=== PATIENT | male | born 1955 | race African-American/Black ===

== ENCOUNTER → 2016-10-04 | Outpatient (CLI) | payer SELFPAY ==
[2016-10-04 12:17] LABS: ALANINE AMINOTRANSFERASE 62 U/L (21-72); ALBUMIN 3.9 g/dL (3.5-5.0); ALKALINE PHOSPHATASE 86 U/L (38-126); ANION GAP 11 (5-19); ASPARTATE AMINO TRANSFERASE 56 U/L (17-59); BILIRUBIN,DIRECT 0.3 mg/dL (0.0-0.4); BILIRUBIN,TOTAL 0.4 mg/dL (0.2-1.3); BLOOD UREA NITROGEN 15 mg/dL (7-20); CALCIUM 9.4 mg/dL (8.4-10.2); CARBON DIOXIDE 25 mmol/L (22-30); CHLORIDE 105 mmol/L (98-107); CREATININE RESULT 0.83 mg/dL (0.52-1.25); GLUCOSE 156 mg/dL (75-110); POTASSIUM 4.7 mmol/L (3.6-5.0); SODIUM 140.6 mmol/L (137-145); TOTAL PROTEIN 8.5 g/dL (6.3-8.2); URIC ACID 4.7 mg/dL (3.5-8.5)
--- NOTE | 2016-10-04 14:53 | RADIOLOGY REPORT (SQ) ---
EXAM DESCRIPTION: ABDOMEN 2 VIEWS COMPLETED DATE/TIME: 10/04/2016 12:05 pm REASON FOR STUDY: CALCULUS OF KIDNEY N20.0 CALCULUS OF KIDNEY Z87.442 PERSONAL HISTORY OF URINARY CALCULI COMPARISON: Abdominal CT scan dated April 2011 NUMBER OF VIEWS: Two views. TECHNIQUE: Supine and erect/decubitus radiographic images of the abdomen acquired. LIMITATIONS: None. FINDINGS: FREE AIR: None. No abnormal gas collections. LUNG BASES: Clear. BOWEL GAS PATTERN: Nonobstructive pattern. No dilated loops or air fluid levels. CALCIFICATIONS: Ovoid calcific density is identified in the right pelvis consistent with a bladder ca lculus which was identified on the previous CT scan. SOFT TISSUES: No gross mass or suggestion of organomegaly. HARDWARE: None in the abdomen. BONES: No acute fracture. No worrisome bone lesions. OTHER: No other significant finding. IMPRESSION: NO RADIOGRAPHIC EVIDENCE FOR ACUTE ABDOMINAL DISEASE. Pelvic calcification consistent w ith a bladder calculus which was present on a previous abdominal CT scan. TECHNICAL DOCUMENTATION: JOB ID: [id number] [employer]- All Rights Reserved
[2016-10-05 09:45] LABS: PROSTATE SPECIFIC ANTIGEN 11.2 ng/mL (0.0-4.0); PSA FREE 0.78 ng/mL
== END ==
LOC: OD 10:35
PROVIDERS: ATTEND Urology
DX: N20.0 Calculus of kidney (principal); Z87.442 Personal history of urinary calculi; R33.9 Retention of urine, unspecified
CPT/HCPCS: 36415; 74020; 80053; 84154; 84550

== ENCOUNTER → 2018-06-09 | Outpatient (CLI) | payer OTHER ==
--- NOTE | 2018-06-09 16:24 | RADIOLOGY REPORT (SQ) ---
EXAM DESCRIPTION: CT ABD/PELVIS COMBO COMPLETED DATE/TIME: 06/09/2018 3:33 pm REASON FOR STUDY: R35.0 FREQUENCY OF MICTURITION R35.0 FREQUENCY OF MICTURITION COMPARISON: 04/29/2011 KUB dated 10/04/2016 TECHNIQUE: CT scan of the abdomen and pelvis performed with and without intravenous contrast, and wi thout oral contrast. Contrasted imaging performed helical scanning technique and dynamic intravenous contrast injection. Images reviewed with lung, soft tissue, and bone windows. Reconstructed coronal a nd sagittal MPR images reviewed. Delayed images for evaluation of the urinary system also acquired. A ll images stored on PACS. All CT scanners at this facility use dose modulation, iterative reconstruction, and/or weight based d osing when appropriate to reduce radiation dose to as low as reasonably achievable (ALARA). [facility]: Dose Right [facility]: CareDose [facility]: Dose Right [facility]: Teradose 4D [facility]: ChromoTek CONTRAST TYPE AND DOSE: contrast/concentration: Isovue 350.00 mg/ml; Total Contrast Delivered: 73.0 ml; Total Saline Delivered: 55.0 ml RENAL FUNCTION: Creatinine 1.1 RADIATION DOSE: CT Rad equipment meets quality standard of care and radiation dose reduction techniq ues were employed. CTDIvol: 8.9 - 8.9 mGy. DLP: 1291 mGy-cm. . LIMITATIONS: None. FINDINGS: NON-CONTRASTED IMAGING: There is a 3.5 cm bladder stone. This is increased in size since prior study. POST-CONTRASTED IMAGING: LOWER CHEST: No significant findings. No nodules or infiltrates. LIVER: Normal size. No masses. No dilated ducts. SPLEEN: Normal size. No focal lesions. PANCREAS: No focal pancreatic lesions. Pancreatic duct is mildly prominent size but unchanged and me asures 2.5 mm in diameter but stands out on CT images. GALLBLADDER: No identified stones by CT criteria. No inflammatory changes to suggest cholecystitis. ADRENAL GLANDS: No significant masses or asymmetry. RIGHT KIDNEY AND URETER: No solid masses. There is a stable right cortical renal cyst. No signific ant calcifications. No hydronephrosis or hydroureter. LEFT KIDNEY AND URETER: No solid masses. No significant calcifications. No hydronephrosis or hydr oureter. AORTA AND VESSELS: No aneurysm. No dissection. Renal arteries, SMA, celiac without stenosis. RETROPERITONEUM: No retroperitoneal adenopathy, hemorrhage or masses. BOWEL AND PERITONEAL CAVITY: There is large amount of stool throughout the colon. No inflammatory ch anges. Study is limited by lack of intra and retroperitoneal fat. APPENDIX: Not visualized. PELVIS: No mass. No free fluid. Normal bladder. ABDOMINAL WALL: No masses. No hernias. BONES: No significant or acute findings. OTHER: No other significant finding. IMPRESSION: 3.5 cm bladder stone. No other significant findings in the abdomen or pelvis. The stud y is limited by lack of intra and retroperitoneal fat. TECHNICAL DOCUMENTATION: JOB ID: [id number] Quality ID # [id number]: Final reports with documentation of one or more dose reduction techniques (e.g., Au tomated exposure control, adjustment of the mA and/or kV according to patient size, use of iterative reconstruction technique) 2010 [employer]- All Rights Reserved Reading location - IP/workstation name: [email or web address]
== END ==
LOC: RAD 14:33
PROVIDERS: ATTEND Urology
DX: N21.0 Calculus in bladder (principal); R35.0 Frequency of micturition
CPT/HCPCS: 74178; 82565

== ENCOUNTER 2019-01-18 14:10 | Observation (INO) | payer OTHER ==
--- NOTE | 2019-01-18 14:51 | ER Document Report ---
ED Medical Screen (RME) - General Chief Complaint: Chest Pain Stated Complaint: CHEST PAIN Time Seen by Provider: 01/18/19 14:47 Primary Care Provider: LINDSAY HOUSTON MD [Primary Care Provider] - Follow up as needed Mode of Arrival: Wheelchair Information source: Parent Notes: 63-year-old male presented to ED for complaint of chest pain while at work. He states it feels like a lot of pressure radiating down the left arm to the with some numbness and tingling is in the fingers. He states no shortness of breath but it did get very hot. He is a cancer patient of prostate cancer he is getting radiation treatments. His last radiation treatment was this morning. He states he has 4 more weeks of treatments to receive. He also has hepatitis C. Dates he is almost finished with the treatment for the hepatitis C. Denies any nausea or vomiting. He states he smokes to 3 cigarettes a day he denies use of alcohol or drugs. I have greeted and performed a rapid initial assessment of this patient. A comprehensive ED assessment and evaluation of the patient, analysis of test results and completion of medical decision making process will be conducted by an additional ED providers. TRAVEL OUTSIDE OF THE [place] IN LAST 30 DAYS: No - Related Data Allergies/Adverse Reactions: No Known Allergies Allergy (Verified 01/18/19 14:40) Past Medical History - Immunizations Hx Diphtheria, Pertussis, Tetanus Vaccination: Yes Physical Exam - Vital signs Vitals: Temp Pulse Resp BP Pulse Ox 99.4 F 83 16 116/73 97 01/18/19 14:19 01/18/19 14:19 01/18/19 14:19 01/18/19 14:19 01/18/19 14:19 Course - Vital Signs Vital signs: Temp Pulse Resp BP Pulse Ox 99.4 F 83 16 116/73 97 01/18/19 14:19 01/18/19 14:19 01/18/19 14:19 01/18/19 14:19 01/18/19 14:19 Doctor's Discharge - Discharge Referrals: LINDSAY HOUSTON MD [Primary Care Provider] - Follow up as needed
[2019-01-18 16:20] LABS: ABSOLUTE LYMPHOCYTES (AUTO) 0.9 10^3/uL (0.5-4.7); ABSOLUTE MONOCYTES (AUTO) 0.6 10^3/uL (0.1-1.4); ABSOLUTE NEUT (AUTO) 2.5 10^3/uL (1.7-8.2); BASOPHILS % (AUTO) 0.7 % (0-2); EOSINOPHILS % (AUTO) 1.1 % (0-6); HEMOGLOBIN 10.1 g/dL (13.5-17.0); LYMPHOCYTES % (AUTO) 22.1 % (13-45); MEAN CORPUSCULAR HEMOGLOBIN 24.8 pg (27.0-33.4); MEAN CORPUSCULAR HGB CONC 31.5 g/dL (32.0-36.0); MEAN CORPUSCULAR VOLUME 79 fl (80-97); MONOCYTES % (AUTO) 15.4 % (3-13); PLATELET COUNT 147 10^3/uL (150-450); RED BLOOD COUNT 4.06 10^6/uL (4.35-5.55); RED CELL DISTRIBUTION WIDTH 13.8 % (11.5-14.0); SEGMENTED NEUTROPHILS % (AUTO) 60.7 % (42-78); TOTAL CELLS COUNTED % (AUTO) 100 %; WHITE BLOOD COUNT 4.1 10^3/uL (4.0-10.5)
[2019-01-18 16:23] LABS: APPEARANCE,URINE SLIGHTLY-CLOUDY; BILIRUBIN,URINE NEGATIVE (NEGATIVE); COLOR,URINE YELLOW; GLUCOSE, URINE NEGATIVE (NEGATIVE); KETONES,URINE NEGATIVE (NEGATIVE); LEUKOCYTE ESTERASE,URINE TRACE (NEGATIVE); NITRITE,URINE NEGATIVE (NEGATIVE); PROTEIN,URINE 30 mg/dL (NEGATIVE)
--- NOTE | 2019-01-18 16:24 | RADIOLOGY REPORT (SQ) ---
EXAM DESCRIPTION: CHEST SINGLE VIEW COMPLETED DATE/TIME: 01/18/2019 4:01 pm REASON FOR STUDY: chest pain COMPARISON: None. NUMBER OF VIEWS: One view. TECHNIQUE: Single frontal radiographic view of the chest acquired. LIMITATIONS: None. FINDINGS: LUNGS AND PLEURA: No opacities, masses or pneumothorax. No pleural effusion. MEDIASTINUM AND HILAR STRUCTURES: No masses. Contour normal. HEART AND VASCULAR STRUCTURES: Heart normal in size. Normal vasculature. BONES: No acute findings. HARDWARE: None in the chest. OTHER: No other significant finding. IMPRESSION: NO SIGNIFICANT RADIOGRAPHIC FINDING IN THE CHEST. TECHNICAL DOCUMENTATION: JOB ID: [id number] [employer]- All Rights Reserved Reading location - IP/workstation name: [email or web address]
[2019-01-18 16:34] LABS: ALBUMIN 4.1 g/dL (3.5-5.0); ALKALINE PHOSPHATASE 63 U/L (38-126); ANION GAP 11 (5-19); ASPARTATE AMINO TRANSFERASE 25 U/L (17-59); BILIRUBIN,DIRECT 0.1 mg/dL (0.0-0.4); BILIRUBIN,TOTAL 0.6 mg/dL (0.2-1.3); BLOOD UREA NITROGEN 19 mg/dL (7-20); CALCIUM 9.7 mg/dL (8.4-10.2); CARBON DIOXIDE 25 mmol/L (22-30); CHLORIDE 107 mmol/L (98-107); CREATINE KINASE 81 U/L (55-170); GLUCOSE 88 mg/dL (75-110); POTASSIUM 4.2 mmol/L (3.6-5.0); TOTAL PROTEIN 8.5 g/dL (6.3-8.2)
[2019-01-18] MEDS ORDERED: MAG HYDROX/AL HYDROX/SIMETH SUSP 30 ML UDCUP PO ONE ×2 (17:27→19:40)
[2019-01-18] MEDS ORDERED: LIDOCAINE 2% VISCOUS SOLN 20 ML UDCUP PO ONE ×2 (17:27→19:40)
--- NOTE | 2019-01-18 18:18 | ER Document Report ---
Entered by JENNIFER GUNTER SCRIBE 01/18/19 1800 Acting as scribe for:LYNETTE GUERRA MD ED General - General Chief Complaint: Chest Pain Stated Complaint: CHEST PAIN Time Seen by Provider: 01/18/19 14:47 Primary Care Provider: LINDSAY HOUSTON MD [Primary Care Provider] - Follow up as needed Mode of Arrival: Wheelchair Notes: Patient is a 63 year old male with family history of [place] presenting to the emergency department complaining of chest pain which lasted for about 5 minutes. Patient states that the pain began about 1300 while he was cutting wood with a table saw. Patient states the pain radiated down his left arm "about senior care down" and he also felt numbness and tingling in his fingers on the left side. Patient states that he had the same pain about 3 weeks ago but was not seen for it. Patient states that he is currently undergoing external beam radiation for prostate cancer. Patient denies having shortness of breath, nausea, or sweating. TRAVEL OUTSIDE OF THE [place] IN LAST 30 DAYS: No - Related Data Allergies/Adverse Reactions: No Known Allergies Allergy (Verified 01/18/19 14:40) Past Medical History - General Information source: Parent - Social History Smoking Status: Former Smoker Cigarette use (# per day): No Chew tobacco use (# tins/day): No Smoking Education Provided: No Frequency of alcohol use: None Drug Abuse: None Family History: CAD - Patient reports she had a sister dropdead at age 36 from myocardial infarction, and a nephew who had a myocardial infarction. Patient has suicidal ideation: No Patient has homicidal ideation: No Malignancy Medical History: Reports Hx Prostate Cancer Infectious Medical History: Reports: Hx Hepatitis - Immunizations Hx Diphtheria, Pertussis, Tetanus Vaccination: Yes Review of Systems - Review of Systems Constitutional: No symptoms reported EENT: No symptoms reported Cardiovascular: See HPI, Chest pain Respiratory: No symptoms reported. denies: Short of breath Gastrointestinal: No symptoms reported. denies: Nausea Genitourinary: No symptoms reported Male Genitourinary: No symptoms reported Musculoskeletal: No symptoms reported Skin: No symptoms reported Hematologic/Lymphatic: No symptoms reported Neurological/Psychological: No symptoms reported -: Yes All other systems reviewed and negative Physical Exam - Vital signs Vitals: Temp Pulse Resp BP Pulse Ox 99.4 F 83 16 116/73 97 01/18/19 14:19 01/18/19 14:19 01/18/19 14:19 01/18/19 14:19 01/18/19 14:19 - Notes Notes: Physical Exam: General: Alert, appears well. HEENT: Normocephalic. Atraumatic. PERRL. Extraocular movements intact. Oropharynx clear. No cartoid bruits. Neck: Supple. Non-tender. Respiratory: No respiratory distress. Clear and equal breath sounds bilaterally. Cardiovascular: Regular rate and rhythm. No murmurs. Abdominal: Normal Inspection. No abdominal tenderness with palpation. No distension. Normal Bowel Sounds. Back: No gross abnormalities. Extremities: Moves all four extremities. Upper extremities: Normal inspection. Normal ROM. Lower extremities: Normal inspection. No edema. Normal ROM. Neurological: Normal cognition. AAOx4. Normal speech. Psychological: Normal affect. Normal Mood. Skin: Warm. Dry. Normal color, no bruises. Course - Re-evaluation Re-evalutation: 01/18/19 19:41 The gallbladder ultrasound is unremarkable. Repeat exam 75 minutes after the first GI cocktail shows the epigastric region to be less tender than it was previously, but is still a little tender. Not sure if the epigastric and right upper quadrant pain never completely went away or if the medicine is wearing off. We will repeat the GI cocktail and reexamine the patient. 01/18/19 20:37 After the second GI cocktail was given, he is even less tender in the epigastric region but there is some tenderness. - Vital Signs Vital signs: Temp Pulse Resp BP Pulse Ox 99.4 F 83 16 116/73 97 01/18/19 14:19 01/18/19 14:19 01/18/19 14:19 01/18/19 14:19 01/18/19 14:19 - Laboratory Result Diagrams: 01/18/19 16:06 01/18/19 16:06 Laboratory results interpreted by me: 01/18/19 01/18/19 01/18/19 16:06 16:06 16:06 RBC 4.06 L Hgb 10.1 L Hct 32.0 L MCV 79 L MCH 24.8 L MCHC 31.5 L Plt Count 147 L [place] % (Auto) 15.4 H Total Protein 8.5 H Urine Protein 30 H Urine Urobilinogen 2.0 H Ur Leukocyte Esterase TRACE H - Diagnostic Test Radiology reviewed: Image reviewed, Reports reviewed - Chest x-ray does not show acute cardio [place] process. - EKG Interpretation by Me EKG shows normal: Sinus rhythm, [place], Intervals, QRS Complexes, ST-T Waves Rate: Normal - 76 Rhythm: NSR - Consults Dr. Zaldivar Time consulted: 20:37 Consulted provider: will come to ER Discharge - Discharge Clinical Impression: Chest pain Qualifiers: Chest pain type: unspecified Qualified Code(s): R07.9 - Chest pain, unspecified GERD (gastroesophageal reflux disease) Qualifiers: Esophagitis presence: esophagitis presence not specified Qualified Code(s): K21.9 - Gastro-esophageal reflux disease without esophagitis Condition: Stable Disposition: ADMITTED OBSERVATION Admitting Provider: Zen (Hospitalist) Unit Admitted: Telemetry Referrals: LINDSAY HOUSTON MD [Primary Care Provider] - Follow up as needed Scribe Attestation: 01/18/19 17:29 I personally performed the services described in the documentation, reviewed and edited the documentation which was dictated to the scribe in my presence, and it accurately records my words and actions. I personally performed the services described in the documentation, reviewed and edited the documentation which was dictated to the scribe in my presence, and it accurately records my words and actions.
--- NOTE | 2019-01-18 19:14 | RADIOLOGY REPORT (SQ) ---
EXAM DESCRIPTION: U/S ABDOMEN LIMITED W/O DOP COMPLETED DATE/TIME: 01/18/2019 7:01 pm REASON FOR STUDY: RUQ, epigastric, and chest pain COMPARISON: None. TECHNIQUE: Dynamic and static grayscale images acquired of the abdomen and recorded on PACS. Additio nal selected color Doppler and spectral images recorded. LIMITATIONS: None. FINDINGS: PANCREAS: No masses. Visualized pancreatic duct normal caliber. LIVER: No masses. Echotexture normal. LIVER VASCULATURE: Normal directional flow of the main portal vein and hepatic veins. GALLBLADDER: No stones. Normal wall thickness. No pericholecystic fluid. ULTRASOUND-DETECTED LY'S SIGN: Negative. INTRAHEPATIC DUCTS AND COMMON DUCT: CBD and intrahepatic ducts normal caliber. No filling defects. INFERIOR VENA CAVA: Normal flow. AORTA: No aneurysm. RIGHT KIDNEY: Normal size. Normal echogenicity. No solid or suspicious masses. Incidental note is m hawa of a 2.3 x 2.1 x 2.3 cm simple cyst within the inferior pole. No hydronephrosis. No calcificatio ns. PERITONEAL AND RIGHT PLEURAL SPACE: No ascites or effusions. OTHER: No other significant findings. IMPRESSION: No findings to correlate to the patient's reported right upper quadrant pain. Essential ly normal right upper quadrant ultrasound. TECHNICAL DOCUMENTATION: JOB ID: [id number] [employer]- All Rights Reserved Reading location - IP/workstation name: [email or web address]
[2019-01-18] MEDS ORDERED: PANTOPRAZOLE SODIUM 40 MG VIAL IV ONE (20:38)
[2019-01-18] MEDS ORDERED: ACETAMINOPHEN 325 MG TABLET PO PRN (20:46)
[2019-01-18] MEDS ORDERED: NITROGLYCERIN 0.4 MG/TAB 25 TAB/BOTTLE SL PRN (20:46)
[2019-01-18] MEDS ORDERED: FAMOTIDINE 20 MG TABLET PO ONE (21:00)
[2019-01-18] MEDS ORDERED: ATORVASTATIN CALCIUM 80 MG TABLET PO SCH (22:00)
--- NOTE | 2019-01-18 22:38 | EKG REPORT ---
SEVERITY:- NORMAL ECG - SINUS RHYTHM : Confirmed by: Sara Beauchamp 18-Jan-2019 22:37:31
[2019-01-19] MEDS ORDERED: INFLUENZA QUAD (6MOS+) 2019-20 VAC 0.5 ML SYR IM ONE (00:33)
--- NOTE | 2019-01-19 04:37 | PDOC H&P ---
History of Present Illness Admission Date/PCP: 01/18/19 20:50 LINDSAY HOUSTON MD Patient complains of: Left-sided chest pain History of Present Illness: NORMAN VINCENT is a 63 year old male with a past medical history of hep C, prostate cancer with radiation, tobacco and hypertension. He presents 2 hours after the onset of left-sided chest pain which was dull in nature occurring with exertion not associated with shortness of breath, nausea vomiting, palpitations or diaphoresis however had radiation to his left arm. This pain lasted only 15 minutes but was relieved by rest and aspirin his pain is reproducible on exam to the chest wall. In the emergency room he received aspirin and referred to the hospitalist for observation. Patient is adamant for discharge following 3 sets of negative cardiac enzymes electing to have outpatient stress test given appointment for radiation this morning at 9 AM in [place]. Past Medical History Cardiac Medical History: Reports: Hypertension Denies: Atrial Fibrillation, Congestive Heart Failure Pulmonary Medical History: Reports: None EENT Medical History: Reports: None Neurological Medical History: Reports: None Endocrine Medical History: Reports: None Renal/ Medical History: Reports: None Malignancy Medical History: Reports: Other - Prostate GI Medical History: Reports: Hepatitis Musculoskeltal Medical History: Reports: None Skin Medical History: Reports: None Psychiatric Medical History: Reports: Tobacco Dependency Social History Information Source: Patient Lives with: Spouse/Significant other Smoking Status: Current Some Day Smoker Electronic Cigarette use?: No Frequency of Alcohol Use: None Hx Recreational Drug Use: No Drugs: None Hx Prescription Drug Abuse: No - Advance Directive Resuscitation Status: Full Code Family History Family History: CAD - Patient reports she had a sister dropdead at age 36 from myocardial infarction, and a nephew who had a myocardial infarction. Parental Family History Reviewed: Yes Children Family History Reviewed: Yes Sibling(s) Family History Reviewed.: Yes Medication/Allergy Home Medications: Calcium Carbonate/Vitamin D3 [Os-Mina 500+D Tablet] 1 tab PO DAILY 01/18/19 Glecaprevir/Pibrentasvir [Mavyret 100-40 mg Tablet] 3 each PO DAILY 01/18/19 Oxybutynin Chloride [Ditropan Xl] 5 mg PO DAILY 01/18/19 Allergies/Adverse Reactions: No Known Allergies Allergy (Verified 01/18/19 14:40) Review of Systems Constitutional: ABSENT: chills, fever(s), headache(s), weight gain, weight loss Eyes: ABSENT: visual disturbances Ears: ABSENT: hearing changes Cardiovascular: ABSENT: chest pain, dyspnea on exertion, edema, orthropnea, palpitations Respiratory: ABSENT: cough, hemoptysis Gastrointestinal: ABSENT: abdominal pain, constipation, diarrhea, hematemesis, hematochezia, nausea, vomiting Genitourinary: ABSENT: dysuria, hematuria Musculoskeletal: ABSENT: joint swelling Integumentary: ABSENT: rash, wounds Neurological: ABSENT: abnormal gait, abnormal speech, confusion, dizziness, focal weakness, syncope Psychiatric: ABSENT: anxiety, depression, homidical ideation, suicidal ideation Endocrine: ABSENT: cold intolerance, heat intolerance, polydipsia, polyuria Hematologic/Lymphatic: ABSENT: easy bleeding, easy bruising Physical Exam Vital Signs: Temp Pulse Resp BP Pulse Ox 97.9 F 77 14 106/68 97 01/19/19 03:28 01/19/19 03:28 01/19/19 03:28 01/19/19 03:28 01/19/19 03:28 Intake & Output 01/17/19 01/18/19 01/19/19 11:59 11:59 11:59 Weight 62.5 kg General appearance: PRESENT: no acute distress, well-developed, well-nourished Head exam: PRESENT: atraumatic, normocephalic Eye exam: PRESENT: conjunctiva pink, EOMI, PERRLA. ABSENT: scleral icterus Ear exam: PRESENT: normal external ear exam Mouth exam: PRESENT: moist, tongue midline Neck exam: ABSENT: carotid bruit, JVD, lymphadenopathy, thyromegaly Respiratory exam: PRESENT: clear to auscultation mariela, prolonged expiratory phas, symmetrical. ABSENT: accessory muscle use, rales, rhonchi, wheezes Cardiovascular exam: PRESENT: RRR, +S1, +S2. ABSENT: diastolic murmur, rubs, systolic murmur, tachycardia Pulses: PRESENT: normal dorsalis pedis pul Vascular exam: PRESENT: normal capillary refill GI/Abdominal exam: PRESENT: normal bowel sounds, soft. ABSENT: distended, guarding, mass, organolmegaly, rebound, tenderness Torso Front/Back Image: 1 - Reproducible chest pain for which she seeks evaluation Rectal exam: PRESENT: deferred Extremities exam: PRESENT: full ROM. ABSENT: calf tenderness, clubbing, pedal edema Neurological exam: PRESENT: alert, awake, oriented to person, oriented to place, oriented to time, oriented to situation, CN II-XII grossly intact. ABSENT: motor sensory deficit Psychiatric exam: PRESENT: appropriate affect, normal mood. ABSENT: homicidal ideation, suicidal ideation Skin exam: PRESENT: dry, intact, warm. ABSENT: cyanosis, rash Results Laboratory Results: 01/18/19 16:06 01/18/19 16:06 01/18/19 01/18/19 01/18/19 16:06 16:06 16:06 WBC 4.1 RBC 4.06 L Hgb 10.1 L Hct 32.0 L MCV 79 L MCH 24.8 L MCHC 31.5 L RDW 13.8 Plt Count 147 L Seg Neutrophils % 60.7 Sodium 142.5 Potassium 4.2 Chloride 107 Carbon Dioxide 25 Anion Gap 11 BUN 19 Creatinine 0.98 Est GFR ( Amer) > 60 Glucose 88 Calcium 9.7 Total Bilirubin 0.6 AST 25 Alkaline Phosphatase 63 Total Protein 8.5 H Albumin 4.1 Lipase Urine Color YELLOW Urine Appearance SLIGHTLY-CLOUDY Urine pH 5.0 Ur Specific [place] 1.020 Urine Protein 30 H Urine Glucose (UA) NEGATIVE Urine Ketones NEGATIVE Urine Blood NEGATIVE Urine Nitrite NEGATIVE Ur Leukocyte Esterase TRACE H Urine WBC (Auto) 26 Urine RBC (Auto) 1 01/18/19 16:06 WBC RBC Hgb Hct MCV MCH MCHC RDW Plt Count Seg Neutrophils % Sodium Potassium Chloride Carbon Dioxide Anion Gap BUN Creatinine Est GFR ( Amer) Glucose Calcium Total Bilirubin AST Alkaline Phosphatase Total Protein Albumin Lipase 188.8 Urine Color Urine Appearance Urine pH Ur Specific [place] Urine Protein Urine Glucose (UA) Urine Ketones Urine Blood Urine Nitrite Ur Leukocyte Esterase Urine WBC (Auto) Urine RBC (Auto) 01/18/19 01/18/19 01/19/19 16:06 16:06 03:00 Creatine Kinase 81 Troponin I < 0.012 < 0.012 Impressions: Chest X-Ray 01/18/19 15:49 IMPRESSION: NO SIGNIFICANT RADIOGRAPHIC FINDING IN THE CHEST. Abdomen Ultrasound 01/18/19 17:28 IMPRESSION: No findings to correlate to the patient's reported right upper quadrant pain. Essentially normal right upper quadrant ultrasound. Assessment and Plan - Diagnosis (1) Atypical chest pain Is this a current diagnosis for this admission?: Yes Plan: Atypical chest pain though the patient's pain is atypical there are multiple risk factors for coronary artery disease and subsequently will observe and evaluation of acute coronary syndrome versus coronary artery disease with anginal equivalents. Cardiac monitoring blood pressure Q6 hours ,TSH, lipid profile, serial cardiac enzymes and outpatient cardiac stress test (2) Hypertension Is this a current diagnosis for this admission?: Yes Plan: RUDDY inhibitor PRN (3) Tobacco abuse Is this a current diagnosis for this admission?: Yes Plan: Tobacco cessation counseling with nicotine replacement option counseling (4) Prostate cancer Is this a current diagnosis for this admission?: Yes Plan: Defer to outpatient oncology (5) GERD (gastroesophageal reflux disease) Qualifiers: Esophagitis presence: esophagitis presence not specified Qualified Code(s): K21.9 - Gastro-esophageal reflux disease without esophagitis Is this a current diagnosis for this admission?: Yes Plan: Pepcid - Time Time Spent with patient: 15-24 minutes - Inpatient Certification Medical Necessity: Need Close Monitoring Due to Risk of Patient Decompensation
[2019-01-19 08:24] LABS: CHOLESTEROL 151.63 mg/dL (0-200); TRIGLYCERIDES 57 mg/dL (<150)
[2019-01-19 08:36] LABS: DIRECT LDL 61 mg/dL (<100)
[2019-01-19] MEDS ORDERED: FAMOTIDINE 20 MG TABLET PO SCH (10:00)
[2019-01-19 10:34] VITALS: BP 123/73
--- NOTE | 2019-01-20 15:26 | PDOC DISCHARGE SUMMARY ---
Impression - Admit/DC Date/PCP Admission Date/Primary Care Provider: 01/18/19 20:50 LINDSAY HOUSTON MD Discharge Date: 01/19/19 - Additional Information Resuscitation Status: Full Code Discharge Diet: As Tolerated Discharge Activity: Activity As Tolerated Referrals: LINDSAY HOUSTON MD [Primary Care Provider] - 01/26/19 11:30 am (In the [place] office.) Prescriptions: Pantoprazole Sodium [Protonix] 40 mg PO QAM #30 tablet. Home Medications: Calcium Carbonate/Vitamin D3 [Os-Mina 500-Vit D3 200 Caplet] 1 tab PO DAILY 01/18/19 Glecaprevir/Pibrentasvir [Mavyret 100-40 mg Tablet] 3 each PO DAILY 01/18/19 Oxybutynin Chloride [Ditropan Xl] 5 mg PO DAILY 01/18/19 Pantoprazole Sodium [Protonix] 40 mg PO QAM #30 tablet. 01/19/19 History of Present Illiness History of Present Illness: Admitting hospitalist's H&P: NORMAN VINCENT is a 63 year old male with a past medical history of hep C, prostate cancer with radiation, tobacco and hypertension. He presents 2 hours after the onset of left-sided chest pain which was dull in nature occurring with exertion not associated with shortness of breath, nausea vomiting, palpitations or diaphoresis however had radiation to his left arm. This pain lasted only 15 minutes but was relieved by rest and aspirin his pain is reproducible on exam to the chest wall. In the emergency room he received aspirin and referred to the hospitalist for observation. Patient is adamant for discharge following 3 sets of negative cardiac enzymes electing to have outpatient stress test given appointment for radiation this morning at 9 AM in [place]. Hospital Course Hospital Course: Patient was admitted for chest pain rule out ACS. His EKG and troponins were cycled and were unremarkable. He did not have recurrence of chest pain since admission. He will be set up with Dr. Aquino for outpatient stress testing. Physical Exam Vital Signs: Temp Pulse Resp BP Pulse Ox 97.8 F 73 19 123/73 100 01/19/19 10:23 01/19/19 10:23 01/19/19 10:23 01/19/19 10:23 01/19/19 10:23 Intake & Output 01/18/19 01/19/19 01/20/19 06:59 06:59 06:59 Intake Total 0 Balance 0 Weight 137 lb 12.623 oz General appearance: PRESENT: no acute distress, well-developed, well-nourished Head exam: PRESENT: atraumatic, normocephalic Eye exam: PRESENT: conjunctiva pink, EOMI, PERRLA. ABSENT: scleral icterus Ear exam: PRESENT: normal external ear exam Mouth exam: PRESENT: moist, tongue midline Neck exam: ABSENT: carotid bruit, JVD, lymphadenopathy, thyromegaly Respiratory exam: PRESENT: clear to auscultation mariela. ABSENT: rales, rhonchi, wheezes Cardiovascular exam: PRESENT: RRR. ABSENT: diastolic murmur, rubs, systolic murmur Pulses: PRESENT: normal dorsalis pedis pul GI/Abdominal exam: PRESENT: normal bowel sounds, soft. ABSENT: distended, guarding, mass, organolmegaly, rebound, tenderness Rectal exam: PRESENT: deferred Extremities exam: PRESENT: full ROM. ABSENT: calf tenderness, clubbing, pedal edema Neurological exam: PRESENT: alert, awake, oriented to person, oriented to place, oriented to time, oriented to situation, CN II-XII grossly intact. ABSENT: motor sensory deficit Results Laboratory Results: WBC 4.1 10^3/uL (4.0-10.5) 01/18/19 16:06 RBC 4.06 10^6/uL (4.35-5.55) L 01/18/19 16:06 Hgb 10.1 g/dL (13.5-17.0) L 01/18/19 16:06 Hct 32.0 % (37.9-51.0) L 01/18/19 16:06 MCV 79 fl (80-97) L 01/18/19 16:06 MCH 24.8 pg (27.0-33.4) L 01/18/19 16:06 MCHC 31.5 g/dL (32.0-36.0) L 01/18/19 16:06 RDW 13.8 % (11.5-14.0) 01/18/19 16:06 Plt Count 147 10^3/uL (150-450) L 01/18/19 16:06 Lymph % (Auto) 22.1 % (13-45) 01/18/19 16:06 [place] % (Auto) 15.4 % (3-13) H 01/18/19 16:06 Eos % (Auto) 1.1 % (0-6) 01/18/19 16:06 Baso % (Auto) 0.7 % (0-2) 01/18/19 16:06 Absolute Neuts (auto) 2.5 10^3/uL (1.7-8.2) 01/18/19 16:06 Absolute Lymphs (auto) 0.9 10^3/uL (0.5-4.7) 01/18/19 16:06 Absolute Monos (auto) 0.6 10^3/uL (0.1-1.4) 01/18/19 16:06 Absolute Eos (auto) 0.0 10^3/uL (0.0-0.6) 01/18/19 16:06 Absolute Basos (auto) 0.0 10^3/uL (0.0-0.2) 01/18/19 16:06 Seg Neutrophils % 60.7 % (42-78) 01/18/19 16:06 Sodium 142.5 mmol/L (137-145) 01/18/19 16:06 Potassium 4.2 mmol/L (3.6-5.0) 01/18/19 16:06 Chloride 107 mmol/L (98-107) 01/18/19 16:06 Carbon Dioxide 25 mmol/L (22-30) 01/18/19 16:06 Anion Gap 11 (5-19) 01/18/19 16:06 BUN 19 mg/dL (7-20) 01/18/19 16:06 Creatinine 0.98 mg/dL (0.52-1.25) 01/18/19 16:06 Est GFR ( Amer) > 60 (>60) 01/18/19 16:06 Est GFR (MDRD) Non-Af > 60 (>60) 01/18/19 16:06 Glucose 88 mg/dL (75-110) 01/18/19 16:06 Calcium 9.7 mg/dL (8.4-10.2) 01/18/19 16:06 Total Bilirubin 0.6 mg/dL (0.2-1.3) 01/18/19 16:06 Direct Bilirubin 0.1 mg/dL (0.0-0.4) 01/18/19 16:06 Neonat Total Bilirubin Not Reportable 01/18/19 16:06 Neonat Direct Bilirubin Not Reportable 01/18/19 16:06 Neonat Indirect Bili Not Reportable 01/18/19 16:06 AST 25 U/L (17-59) 01/18/19 16:06 ALT 14 U/L (<50) 01/18/19 16:06 Alkaline Phosphatase 63 U/L (38-126) 01/18/19 16:06 Creatine Kinase 81 U/L (55-170) 01/18/19 16:06 Troponin I < 0.012 ng/mL 01/19/19 09:00 Total Protein 8.5 g/dL (6.3-8.2) H 01/18/19 16:06 Albumin 4.1 g/dL (3.5-5.0) 01/18/19 16:06 Triglycerides 57 mg/dL (<150) 01/19/19 07:56 Cholesterol 151.63 mg/dL (0-200) 01/19/19 07:56 LDL Cholesterol Direct 61 mg/dL (<100) 01/19/19 07:56 VLDL Cholesterol 11.0 mg/dL (10-31) 01/19/19 07:56 HDL Cholesterol 63 mg/dL (>40) 01/19/19 07:56 Lipase 188.8 U/L (23-300) 01/18/19 16:06 Urine Color YELLOW 01/18/19 16:06 Urine Appearance SLIGHTLY-CLOUDY 01/18/19 16:06 Urine pH 5.0 (5.0-9.0) 01/18/19 16:06 Ur Specific [place] 1.020 01/18/19 16:06 Urine Protein 30 mg/dL (NEGATIVE) H 01/18/19 16:06 Urine Glucose (UA) NEGATIVE mg/dL (NEGATIVE) 01/18/19 16:06 Urine Ketones NEGATIVE mg/dL (NEGATIVE) 01/18/19 16:06 Urine Blood NEGATIVE (NEGATIVE) 01/18/19 16:06 Urine Nitrite NEGATIVE (NEGATIVE) 01/18/19 16:06 Urine Bilirubin NEGATIVE (NEGATIVE) 01/18/19 16:06 Urine Urobilinogen 2.0 mg/dL (<2.0) H 01/18/19 16:06 Ur Leukocyte Esterase TRACE (NEGATIVE) H 01/18/19 16:06 Urine WBC (Auto) 26 /HPF 01/18/19 16:06 Urine RBC (Auto) 1 /HPF 01/18/19 16:06 U Hyaline Cast (Auto) 5 /LPF 01/18/19 16:06 Urine Bacteria (Auto) TRACE /HPF 01/18/19 16:06 Urine Mucus (Auto) MOD /LPF 01/18/19 16:06 Urine Ascorbic Acid NEGATIVE (NEGATIVE) 01/18/19 16:06 01/18/19 01/19/19 01/19/19 16:06 03:00 07:51 Troponin I < 0.012 < 0.012 < 0.012 01/19/19 09:00 Troponin I < 0.012 Impressions: Chest X-Ray 01/18/19 15:49 IMPRESSION: NO SIGNIFICANT RADIOGRAPHIC FINDING IN THE CHEST. Abdomen Ultrasound 01/18/19 17:28 IMPRESSION: No findings to correlate to the patient's reported right upper quadrant pain. Essentially normal right upper quadrant ultrasound. Stroke Is this a Stroke Patient?: No Acute Heart Failure - Is this a Heart Failure Patient?: No
== END 2019-01-19 12:00 | disposition home or self-care (01) ==
LOC: ER 14:10 → EH 20:50 → 3N 01-19
PROVIDERS: ADMIT Internal Medicine; ATTEND Internal Medicine
DX: R07.89 Other chest pain (principal); B19.20 Unspecified viral hepatitis C without hepatic coma; I10 Essential (primary) hypertension; K21.9 Gastro-esophageal reflux disease without esophagitis; R20.0 Anesthesia of skin; R20.2 Paresthesia of skin; C61 Malignant neoplasm of prostate; F17.210 Nicotine dependence, cigarettes, uncomplicated; Z79.899 Other long term (current) drug therapy; Z92.3 Personal history of irradiation; Z82.49 Family history of ischemic heart disease and other diseases of the circulatory system; Z23 Encounter for immunization
CPT/HCPCS: 93005; 99285; 96374; 36415 ×2; 82550; 83690; 85025; 80053; 81001; 84484 ×2; 80061; 71045; 76705; 90686; 93010; G0378 ×2; J3490 ×2; C9113; 90471; G0008

== ENCOUNTER 2019-10-12 10:15 | Emergency (ER) | payer SELFPAY ==
--- NOTE | 2019-10-12 11:08 | RADIOLOGY REPORT (SQ) ---
EXAM DESCRIPTION: CHEST SINGLE VIEW IMAGES COMPLETED DATE/TIME: 10/12/2019 11:00 am REASON FOR STUDY: shortness of breath COMPARISON: 01/18/2019 EXAM PARAMETERS: NUMBER OF VIEWS: One view. TECHNIQUE: Single frontal radiographic view of the chest acquired. RADIATION DOSE: NA LIMITATIONS: None. FINDINGS: LUNGS AND PLEURA: No opacities, masses or pneumothorax. No pleural effusion. MEDIASTINUM AND HILAR STRUCTURES: No masses. Contour normal. HEART AND VASCULAR STRUCTURES: Heart normal in size. Normal vasculature. BONES: No acute findings. HARDWARE: None in the chest. OTHER: No other significant finding. IMPRESSION: NO ACUTE RADIOGRAPHIC FINDING IN THE CHEST. TECHNICAL DOCUMENTATION: JOB ID: [id number] 2010 [employer]- All Rights Reserved Reading location - IP/workstation name: [email or web address]
[2019-10-12 11:21] LABS: ALBUMIN 3.8 g/dL (3.5-5.0); ALKALINE PHOSPHATASE 105 U/L (38-126); ANION GAP 8 (5-19); ASPARTATE AMINO TRANSFERASE 25 U/L (17-59); BILIRUBIN,TOTAL 0.5 mg/dL (0.2-1.3); BLOOD UREA NITROGEN 13 mg/dL (7-20); CALCIUM 9.6 mg/dL (8.4-10.2); CARBON DIOXIDE 26 mmol/L (22-30); CHLORIDE 104 mmol/L (98-107); GLUCOSE 112 mg/dL (75-110); POTASSIUM 4.5 mmol/L (3.6-5.0); TOTAL PROTEIN 8.3 g/dL (6.3-8.2)
[2019-10-12 11:25] LABS: APPEARANCE,URINE CLEAR; BILIRUBIN,URINE NEGATIVE (NEGATIVE); COLOR,URINE YELLOW; GLUCOSE, URINE NEGATIVE (NEGATIVE); KETONES,URINE NEGATIVE (NEGATIVE); LEUKOCYTE ESTERASE,URINE NEGATIVE (NEGATIVE); NITRITE,URINE NEGATIVE (NEGATIVE); PROTEIN,URINE NEGATIVE (NEGATIVE); URINE SPECIFIC GRAVITY 1.019; UROBILINOGEN,URINE NEGATIVE mg/dL (<2.0)
[2019-10-12 12:10] VITALS: BP 124/75
--- NOTE | 2019-10-12 12:13 | ER Document Report ---
ED General - General Chief Complaint: Sore Throat Stated Complaint: SORE THROAT/CONGESTION Time Seen by Provider: 10/12/19 11:35 Primary Care Provider: LINDSAY HOUSTON MD [NO LOCAL MD] - Follow up as needed Notes: CHIEF COMPLAINT: Cough and congestion for 3 to 4 days HPI: 64-year-old male with cough congestion including nasal congestion for the last 3 to 4 days no definite fevers occasional chills denies abdominal pain nausea vomiting does complain of some occasional shortness of breath. No chest pain. Has taken no medications for symptoms. ROS: See HPI - all other systems were reviewed and are otherwise negative Constitutional: no fever Eyes: no drainage, no blurred vision ENT: + runny nose, no sore throat Cardiovascular: no chest pain Resp: Occasional SOB, + cough GI: no vomiting, no diarrhea, no abdominal pain : no dysuria Integumentary: no rash Allergy: no hives Musculoskeletal: no extremity pain or swelling Neurological: no numbness/tingling, no weakness MEDICATIONS: I agree with the patient medications as charted by the RN. ALLERGIES: I agree with the allergies as charted by the RN. PAST MEDICAL HISTORY/PAST SURGICAL HISTORY: Reviewed and agree as charted by RN. SOCIAL HISTORY: Reviewed and agree as charted by RN. FAMILY HISTORY: No significant familial comorbid conditions directly related to patient complaint EXAM: Reviewed vital signs as charted by RN. CONSTITUTIONAL: Alert and oriented and responds appropriately to questions. Well-appearing; well-nourished HEAD: Normocephalic; atraumatic EYES: PERRL; Conjunctivae clear, sclerae non-icteric ENT: normal nose; + clear discharge + Rhinorrhea; moist mucous membranes; pharynx without lesions noted, no uvula edema or deviation, no tonsillar hypertrophy, phonation normal NECK: Supple without meningismus; non-tender; no cervical lymphadenopathy, no masses CARD: RRR; no murmurs, no clicks, no rubs, no gallops; symmetric distal pulses RESP: Normal chest excursion without splinting or tachypnea; breath sounds clear and equal bilaterally; no wheezes, no rhonchi, no rales, pulse oximetry 100% on room air not hypoxic ABD/GI: Normal bowel sounds; non-distended; soft, non-tender, no rebound, no guarding; no palpable organomegaly or masses. BACK: The back appears normal and is non-tender to palpation, there is no CVA tenderness EXT: Normal ROM in all joints; non-tender to palpation; no cyanosis, no effusions, no edema SKIN: Normal color for age and race; warm; dry; good turgor; no acute lesions noted NEURO: Moves all extremities equally; Motor and sensory function intact PSYCH: The patient's mood and manner are appropriate. Grooming and personal hygiene are appropriate. MDM: 64-year-old male with nasal congestion cough occasional shortness of breath. Not dyspneic at this time initial screening labs obtained by nursing did not show any acute findings. Chest x-ray was negative patient will be tested for COVID 19, person under investigation until test results return for worsening symptoms. I will prescribe an albuterol inhaler for the patient TRAVEL OUTSIDE OF THE [place] IN LAST 30 DAYS: No - Related Data Allergies/Adverse Reactions: No Known Allergies Allergy (Verified 10/12/19 10:43) Past Medical History - Social History Smoking Status: Current Every Day Smoker Frequency of alcohol use: None Drug Abuse: None Family History: CAD - Patient reports she had a sister dropdead at age 36 from myocardial infarction, and a nephew who had a myocardial infarction. - Past Medical History Cardiac Medical History: Reports: Hx Hypertension Denies: Hx Atrial Fibrillation, Hx Congestive Heart Failure Malignancy Medical History: Reports Hx Prostate Cancer GI Medical History: Reports: Hx Hepatitis Infectious Medical History: Reports: Hx Hepatitis - Immunizations Hx Diphtheria, Pertussis, Tetanus Vaccination: Yes Physical Exam - Vital signs Vitals: Temp Pulse Resp BP Pulse Ox 98.5 F 74 16 114/71 100 10/12/19 10:42 10/12/19 10:42 10/12/19 10:42 10/12/19 10:42 10/12/19 10:42 Course - Vital Signs Vital signs: Temp Pulse Resp BP Pulse Ox 98.5 F 67 16 124/75 99 10/12/19 10:42 10/12/19 12:10 10/12/19 12:10 10/12/19 12:10 10/12/19 12:10 - Laboratory Result Diagrams: 10/12/19 10:40 Laboratory results interpreted by me: 10/12/19 10/12/19 10:27 10:40 Glucose 112 H Total Protein 8.3 H Urine Ascorbic Acid 40 H Discharge - Discharge Clinical Impression: Shortness of breath, Nasal congestion, Person under investigation for COVID-19 Condition: Stable Disposition: HOME, SELF-CARE Additional Instructions: Use the albuterol inhaler 2 puffs every 4 hours as needed for shortness of breath or coughing. No under investigation for COVID-19 at this time self quarantine at home until you have a negative test result. Test results are usually coming through in about 2 to 5 days. You should hear from someone at the hospital about your test results. Follow-up with primary care provider for reevaluation of symptoms. If you have worsening symptoms return for reevaluation Prescriptions: Albuterol Sulfate [Proair HFA Inhalation Aerosol 8.5 gm MDI] 2 puff IH Q4H PRN #1 mdi PRN Reason: Referrals: LINDSAY HOUSTON MD [NO LOCAL MD] - Follow up as needed
== END 2019-10-12 12:25 | disposition home or self-care (01) ==
LOC: ER 10:15
DX: R06.02 Shortness of breath (principal); J02.9 Acute pharyngitis, unspecified; R09.81 Nasal congestion; R09.89 Other specified symptoms and signs involving the circulatory and respiratory systems; R05 Cough; F17.200 Nicotine dependence, unspecified, uncomplicated; I10 Essential (primary) hypertension; Z20.828 Contact with and (suspected) exposure to other viral communicable diseases
CPT/HCPCS: 99283; 36415; 87070; 87880; 87635; 80053; 81001; 83880; 71045; C9803

== ENCOUNTER 2020-02-01 16:41 | Emergency (ER) | payer SELFPAY ==
[2020-02-01 18:05] VITALS: BP 123/85
--- NOTE | 2020-02-01 18:25 | ER Document Report ---
ED General - General Chief Complaint: Other Stated Complaint: POSSIBLE COVID EXPOSURE Time Seen by Provider: 02/01/20 18:15 Mode of Arrival: Ambulatory Information source: Patient TRAVEL OUTSIDE OF THE [place] IN LAST 30 DAYS: No - HPI Notes: Patient is a 64-year-old male with a history of prostate cancer and hepatitis C who presents for Covid testing. Patient states his son's girlfriend recently tested positive and he wanted to get tested himself. He denies any symptoms including, chest pain, shortness of breath, cough, nausea, vomiting, abdominal pain, diarrhea, and fever. - Related Data Allergies/Adverse Reactions: No Known Allergies Allergy (Verified 10/12/19 10:43) Past Medical History - General Information source: Patient - Social History Smoking Status: Current Every Day Smoker Cigarette use (# per day): Yes - 4-5 Family History: CAD - Patient reports she had a sister dropdead at age 36 from myocardial infarction, and a nephew who had a myocardial infarction. - Past Medical History Cardiac Medical History: Reports: Hx Hypertension Denies: Hx Atrial Fibrillation, Hx Congestive Heart Failure Malignancy Medical History: Reports Hx Prostate Cancer GI Medical History: Reports: Hx Hepatitis Infectious Medical History: Reports: Hx Hepatitis - Immunizations Hx Diphtheria, Pertussis, Tetanus Vaccination: Yes Review of Systems - Review of Systems Constitutional: No symptoms reported EENT: No symptoms reported Cardiovascular: No symptoms reported Respiratory: No symptoms reported Gastrointestinal: No symptoms reported Genitourinary: No symptoms reported Male Genitourinary: No symptoms reported Musculoskeletal: No symptoms reported Skin: No symptoms reported Hematologic/Lymphatic: No symptoms reported Neurological/Psychological: No symptoms reported Physical Exam - Vital signs Vitals: Temp Pulse Resp BP Pulse Ox 97.5 F 83 18 123/85 100 02/01/20 18:05 02/01/20 18:05 02/01/20 18:05 02/01/20 18:05 02/01/20 18:05 - Notes Notes: PHYSICAL EXAMINATION: VITALS: Vitals reviewed and within normal limits. GENERAL: Well-appearing, well-nourished and in no acute distress. HEAD: Atraumatic, normocephalic. LUNGS: Breath sounds clear to auscultation bilaterally and equal. No wheezes rales or rhonchi. HEART: Regular rate and rhythm without murmurs. ABDOMEN: Soft, nontender, normoactive bowel sounds. No guarding, no rebound. No masses appreciated. PSYCH: Normal mood, normal affect. SKIN: Warm, Dry, normal turgor, no rashes or lesions noted. Course - Re-evaluation Re-evalutation: Patient is a 64-year-old male who presents for Covid testing. He is completely asymptomatic but is concerned he was exposed to the virus. Vital signs are stable within normal limits. On exam, lungs are clear to auscultation bilaterally and heart rate and rhythm are regular. Patient will be tested here in the ED. Patient instructed to quarantine until he receives his results in 2 to 3 days. Return precautions and follow-up instructions given. Patient understands and is in agreement with the plan. Patient will be discharged home. - Vital Signs Vital signs: Temp Pulse Resp BP Pulse Ox 97.5 F 83 18 123/85 100 02/01/20 18:05 02/01/20 18:05 02/01/20 18:05 02/01/20 18:05 02/01/20 18:05 Discharge - Discharge Clinical Impression: Exposure to COVID-19 virus Condition: Stable Disposition: HOME, SELF-CARE Instructions: COVID-19 Guidance for Persons Under Investigation Referrals: [facility] [Provider Group] - Follow up as needed
== END 2020-02-01 18:32 | disposition home or self-care (01) ==
LOC: ER 16:41
DX: Z20.828 Contact with and (suspected) exposure to other viral communicable diseases (principal); F17.210 Nicotine dependence, cigarettes, uncomplicated; Z85.46 Personal history of malignant neoplasm of prostate
CPT/HCPCS: 99282; 87635; C9803